=== PATIENT | female | born 1950 | race Caucasian/White ===

== ENCOUNTER 2023-04-01 13:58 | Outpatient (CLI) | payer MEDICARE ==
[2023-04-01 20:01] LABS: BASOPHILS # (AUTO) 0.1 10^3/uL (0.0-0.1); BASOPHILS % (AUTO) 0.9 %; EOSINOPHILS % (AUTO) 0.5 %; HCT - HEMATOCRIT 36.3 % (37.0-47.0); HGB - HEMOGLOBIN 12.1 g/dL (12.0-16.0); LYMPHOCYTES # (AUTO) 1.6 10^3/uL (1.5-3.5); LYMPHOCYTES % (AUTO) 24.7 %; MEAN CORPUSCULAR HGB CONC 33.3 g/dL (32.0-36.0); MEAN CORPUSCULAR VOLUME 104.9 fL (81.0-99.0); MEAN PLATELET VOLUME 9.6 fL (7.9-10.8); MONOCYTES # (AUTO) 0.4 10^3/uL (0.0-1.0); MONOCYTES % (AUTO) 5.9 %; NEUTROPHILS # (AUTO) 4.5 10^3/uL (1.5-6.6); NEUTROPHILS % (AUTO) 67.8 %; PLT - PLATELET COUNT 266 10^3/uL (130-450); RED BLOOD COUNT 3.46 10^6/uL (4.20-5.40); RED CELL DISTRIBUTION WIDTH 11.9 % (12.0-15.0); WHITE BLOOD COUNT 6.6 x10^3/uL (4.8-10.8)
[2023-04-01 20:09] LABS: ALBUMIN 3.7 g/dL (3.2-5.5); BILIRUBIN,TOTAL 0.7 mg/dL (0.2-1.0); CALCIUM 9.1 mg/dL (8.5-10.3); CREATININE 1.1 mg/dL (0.4-1.0); POTASSIUM 4.1 mmol/L (3.5-5.0); TOTAL PROTEIN 7.3 g/dL (6.7-8.2); URIC ACID 6.2 mg/dL (2.6-7.2)
[2023-04-01 20:23] LABS: THYROID STIMULATING HORMONE 0.73 uIU/mL (0.34-5.60)
[2023-04-01 20:26] LABS: FREE T4 (FREE THYROXINE) 0.72 ng/dL (0.58-1.64)
[2023-04-01 20:27] LABS: FREE T3 2.64 pg/mL (2.5-3.9)
[2023-04-01 20:35] LABS: FOLATE 6.78 ng/mL (5.90 - >24.8)
[2023-04-01 21:20] LABS: ESTIMATED AVERAGE GLUCOSE 97 mg/dL (70-100)
[2023-04-03 09:08] LABS: VITAMIN D 25-HYDROXY 10.3 ng/mL (30.0-100.0)
[2023-04-05 18:07] LABS: THYROGLOBULIN ANTIBODY <1.0 IU/mL (0.0-0.9); THYROID PEROXIDASE (TPO) AB <9 IU/mL (0-34)
[2023-04-05 20:08] LABS: MAGNESIUM RBC 4.8 mg/dL (4.2-6.8)
== END 2023-04-01 13:59 | disposition home or self-care (01) ==
LOC: LAB.S 13:58
PROVIDERS: ATTEND Physical Medicine & Rehabilitation Pain Medicine
DX: E03.9 Hypothyroidism, unspecified (principal); E55.9 Vitamin D deficiency, unspecified; R53.83 Other fatigue; R73.09 Other abnormal glucose; D51.9 Vitamin B12 deficiency anemia, unspecified; D52.9 Folate deficiency anemia, unspecified
CPT/HCPCS: 36415; 80053; 82306; 82550; 82607; 82746; 83036; 83735; 84439; 84443; 84481; 84482; 84550; 85025; 86376; 86800

== ENCOUNTER 2024-01-05 11:07 | Outpatient (CLI) | payer MEDICARE | END 2024-01-05 23:59 | disposition critical access hospital (66) | LOC: EMS 11:07 | DX: R55 Syncope and collapse (principal); R42 Dizziness and giddiness | CPT/HCPCS: A0425; A0427 ==

== ENCOUNTER 2024-01-05 11:48 | Emergency (ER) | payer MEDICARE ==
[2024-01-05] MEDS: SODIUM CHLORIDE 0.9% 1,000 ML IV STA (12:12)
[2024-01-05 12:14] LABS: BASOPHILS # (AUTO) 0.1 10^3/uL (0.0-0.1); BASOPHILS % (AUTO) 0.8 %; EOSINOPHILS # (AUTO) 0.1 10^3/uL (0.0-0.7); EOSINOPHILS % (AUTO) 0.8 %; HGB - HEMOGLOBIN 12.3 g/dL (12.0-16.0); LYMPHOCYTES # (AUTO) 1.1 10^3/uL (1.5-3.5); LYMPHOCYTES % (AUTO) 14.1 %; MEAN CORPUSCULAR HEMOGLOBIN 35.5 pg (27.0-31.0); MEAN CORPUSCULAR HGB CONC 34.2 g/dL (32.0-36.0); MEAN PLATELET VOLUME 8.8 fL (7.9-10.8); MONOCYTES # (AUTO) 0.6 10^3/uL (0.0-1.0); MONOCYTES % (AUTO) 7.2 %; NEUTROPHILS # (AUTO) 5.8 10^3/uL (1.5-6.6); NEUTROPHILS % (AUTO) 76.7 %; PLT - PLATELET COUNT 197 10^3/uL (130-450); RED BLOOD COUNT 3.46 10^6/uL (4.20-5.40); RED CELL DISTRIBUTION WIDTH 12.5 % (12.0-15.0); WHITE BLOOD COUNT 7.6 x10^3/uL (4.8-10.8)
[2024-01-05 12:27] LABS: ALBUMIN 4.5 g/dL (3.2-5.5); ALBUMIN/GLOBULIN RATIO 1.7 (1.0-2.2); BILIRUBIN,TOTAL 0.7 mg/dL (0.2-1.0); CALCIUM 9.6 mg/dL (8.5-10.3); CREATININE 1.1 mg/dL (0.6-1.3); TOTAL PROTEIN 7.1 g/dL (6.4-8.9)
[2024-01-05 12:37] LABS: TROPONIN I HIGH SENSITIVITY 2.3 ng/L (2.3-14.8)
--- NOTE | 2024-01-05 13:36 | ED Physician Documentation ---
History of Present Illness - Stated complaint Stated Complaint: DIZZINESS - Chief complaint Chief Complaint: Neuro - History obtained from History obtained from: Patient - Additonal information Additional information: The patient is brought to the emergency department by EMS for chief complaint of lightheadedness and near syncope. The patient was volunteering around town, weeding some flower boxes, when she began to feel lightheaded. She denies any chest pain, shortness of breath, or palpitations at that time. She started to feel as though she was going to pass out, so she grabbed onto somebody near her and they were able to sit her down. The patient did not end up losing consciousness and sat there until she is feeling little better. EMS was called and they brought her here. The patient states she is feeling better. EMS has given her about half a bag of fluid and that seems to have helped. Patient does admit she does not drink enough water. She states she is otherwise pretty hea lthy, however. No new medications. No other complaints at this time. PD PAST MEDICAL HISTORY - Past Medical History Past Medical History: Yes Cardiovascular: Hypertension - Past Surgical History Past Surgical History: Yes Ortho: Carpal Tunnel surgery - Present Medications Home Medications: Ambulatory Orders Medication Instructions Recorded Confirmed Losartan [Cozaar] 50 mg PO DAILY 01/05/24 01/05/24 - Allergies Allergies/Adverse Reactions: Allergies Allergy/AdvReac Type Severity Reaction Status Date / Time codeine AdvReac Nausea Verified 01/05/24 11:56 - Social History Does the pt smoke?: No Smoking Status: Never smoker Does the pt drink ETOH?: Yes Does the pt have substance abuse?: No PD ED PE NORMAL - Vitals Vital signs reviewed: Yes - General General: Alert and oriented X 3, No acute distress, Well developed/nourished - HEENT HEENT: Atraumatic, PERRL, EOMI, Moist mucous membranes - Neck Neck: Supple, no meningeal sign - Cardiac Cardiac: RRR, No murmur - Respiratory Respiratory: No respiratory distress, Clear bilaterally - Abdomen Abdomen: Soft, Non tender, Non distended - Derm Derm: Normal color, Warm and dry, No rash - Extremities Extremities: No deformity, No edema - Neuro Neuro: Alert and oriented X 3, Other (No gross deficits) - Psych Psych: Normal mood, Normal affect Results - Vitals Vitals: Vital Signs - 24 hr 01/05/24 01/05/24 11:51 13:29 Temperature 36 C L Heart Rate 87 99 Respiratory 15 19 Rate Blood Pressure 137/77 H 141/74 H O2 Saturation 100 100 Oxygen O2 Source Room air - EKG (time done) 1200 EKG releavant findings:: EKG personally interpreted by author of this note. Relevant findings are: Rate: Rate (enter#) (89) Rhythm: NSR [place]: Normal Intervals: Normal [place] QRS: Normal Ischemia: Normal ST segments Computer interpretation: Agree with computer - Labs Labs: Laboratory Tests 01/05/24 01/05/24 12:08 12:08 WBC 7.6 RBC 3.46 L Hgb 12.3 Hct 36.0 L MCV 104.0 H MCH 35.5 H MCHC 34.2 RDW 12.5 Plt Count 197 MPV 8.8 Neut # (Auto) 5.8 Lymph # (Auto) 1.1 L [place] # (Auto) 0.6 Eos # (Auto) 0.1 Baso # (Auto) 0.1 Absolute Nucleated RBC 0.00 Nucleated RBC % 0.0 Sodium 139 Potassium 4.0 Chloride 104 Carbon Dioxide 24 Anion Gap 11.0 BUN 15 Creatinine 1.1 Estimated GFR (MDRD) 48 L Glucose 103 Calcium 9.6 Total Bilirubin 0.7 AST 52 H ALT 34 Alkaline Phosphatase 47 Troponin I High Sens 2.3 Total Protein 7.1 Albumin 4.5 Globulin 2.6 Albumin/Globulin Ratio 1.7 Lipase 81 PD Medical Decision Making - ED course Complexity details: reviewed results, re-evaluated patient, considered differential, d/w patient, d/w family ED course: The patient was treated with IV fluids and worked up with labs and EKG, which were unremarkable. Patient was feeling much better after her IV fluids and stated she would like to go home. We have discussed home management and symptoms prevention of lightheadedness, and the usual indications for return. Departure - Departure Disposition: 01 Home, Self Care Clinical Impression: Near syncope, Dehydration Condition: Stable Instructions: ED Dehydration, ED Near Syncope Vasovagal Comments: Your labs look good, as does your EKG. There is no evidence of an emergent condition at this time. You do have evidence of dehydration and this is most likely contributed to your dizziness today. Please follow-up with your primary doctor if you have further concerns. Be sure you are drinking 8 to 10 cups of water every day to avoid episodes of lightheadedness like this in the future. If you develop any chest pain or shortness of breath, please return to the emergency department immediately. Forms: PCP List
[2024-01-05 13:47] VITALS: BP 138/80; O2SAT 99
== END 2024-01-05 13:46 | disposition home or self-care (01) ==
LOC: EDUNIT# → ED 11:48
DX: E86.0 Dehydration (principal); R55 Syncope and collapse
CPT/HCPCS: 36415; 80053; 83690; 84484; 85025; 93005; 96360; 99284